=== PATIENT | female | born 1980 | race Caucasian/White ===

== ENCOUNTER 2018-03-05 10:49 | Emergency (ER) | payer BC, OTHER ==
[2018-03-05 10:56] VITALS: BP 140/73
--- NOTE | 2018-03-05 11:13 | Emergency Department Report ---
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 LMP 01/29. NO VAG DC. NOT CONCERNED FOR STD. NO N/V/D. ED Review of Systems ROS: Stated complaint: ABD PAIN/STOMACH PAIN Other details as noted in HPI Comment: All other systems reviewed and negative Constitutional: denies: see HPI Eyes: denies: eye pain ENT: denies: throat pain Respiratory: denies: see HPI Cardiovascular: denies: dyspnea on exertion Endocrine: denies: intolerance to cold Gastrointestinal: as per HPI. denies: abdominal pain, nausea, vomiting, diarrhea, constipation, hematemesis, melena, hematochezia Genitourinary: as per HPI, abnormal menses. denies: urgency, dysuria, frequency, hematuria, discharge Musculoskeletal: denies: back pain Skin: denies: rash Neurological: denies: weakness Psychiatric: denies: depression Hematological/Lymphatic: denies: easy bleeding ED Past Medical Hx - Past Medical History Previous Medical History?: No - Surgical History Hx Cholecystectomy: Yes - Family History Family history: no significant - Social History Smoking Status: Never Smoker Substance Use Type: None - Medications Home Medications: Home Medications Medication Instructions Recorded Confirmed Last Taken Type Sulfamethoxazole/Trimethoprim 1 each PO BID #6 tablet 03/05/18 Unknown Rx [Bactrim DS TAB] Dysuria Exam - Exam General: Vital signs noted. No distress. Alert and acting appropriately. A/O X 4 S1S2 LUNGS CTA ABD SNT NO CVA TENDERNESS Exam: Yes Moist Mucous Membranes, No CVA Tenderness, No Abdominal Tenderness, No Rigidity or Guarding ED Course Vital Signs 03/05/18 10:55 Temperature 99.4 F Pulse Rate 70 Respiratory 20 Rate Blood Pressure 140/73 O2 Sat by Pulse 100 Oximetry ED Medical Decision Making - Medical Decision Making Labs 03/05/18 Unknown Urine Color Red Urine Turbidity Cloudy Urine pH 8.0 H Ur Specific [place] 1.013 Urine Protein 30 mg/dl Urine Glucose (UA) Neg Urine Ketones Neg Urine Blood Lg Urine Nitrite Neg Urine Bilirubin Neg Urine Urobilinogen < 2.0 Ur Leukocyte Esterase Neg Urine WBC (Auto) 30.0 H Urine RBC (Auto) > 182.0 U Epithel Cells (Auto) 3.0 Urine HCG, Qual Negative PREG NEG NOT CONCERNED FOR STD 30 WBC IN URINE- WILL TX FOR UTI PT HAS OBGYN FOR FOLLOW UP - Differential Diagnosis RO PREG Critical care attestation.: If time is entered above; I have spent that time in minutes in the direct care of this critically ill patient, excluding procedure time. ED Disposition Clinical Impression: Dysmenorrhea, UTI (urinary tract infection) Disposition: TO HOME OR SELFCARE Is pt being admited?: No Does the pt Need Aspirin: No Condition: Stable Instructions: Menstruation (ED), Dysmenorrhea (ED) Additional Instructions: NEGATIVE URINE INDICATED URINARY TRACT INFECTION MED ORDERED TODAY UNTIL GONE FOLLOW UP WITH PCP OR OBGYN IF PERSISTS REFERRAL BELOW DIET AND ACTIVITY TOLERATED HYDRATE WELL WITH WATER DAILY Prescriptions: Sulfamethoxazole/Trimethoprim [Bactrim DS TAB] 1 each PO BID #6 tablet Referrals: ANUM JURADO MD [Staff Physician] - 3-5 Days [facility] [Outside] - 3-5 Days Time of Disposition: 11:14
[2018-03-05] MEDS ORDERED: NORCO 5/325 PO ONE (11:14)
[2018-03-05 11:23] LABS: Bilirubin,Urine NEG (Negative); Blood,Urine LG (Negative); Urobilinogen,Urine < 2.0 mg/dL (<2.0)
[2018-03-05 11:24] LABS: Color,Urine Red (Yellow); RBC,Urine > 182.0 /HPF (0.0-6.0)
[2018-03-05 11:26] LABS: HCG Qualitative,Urine Negative (Negative)
[2018-03-05] MEDS ORDERED: BACTRIM DS PO ONE (11:29)
== END 2018-03-05 11:43 | disposition home or self-care (01) ==
LOC: ED 10:49
DX: N39.0 Urinary tract infection, site not specified (principal); N94.6 Dysmenorrhea, unspecified; Z90.49 Acquired absence of other specified parts of digestive tract
CPT/HCPCS: 81001; 81025; 99283

== ENCOUNTER 2019-11-09 10:18 | Observation (INO) | payer OTHER ==
[2019-11-09 12:55] LABS: Basophils % (Auto) 0.2 % (0.0-1.8); Eosinophils % (Auto) 0.4 % (0.0-4.3); Hematocrit 32.5 % (30.3-42.9); Hemoglobin 11.7 gm/dl (10.1-14.3); Lymphocytes # (Auto) 1.2 K/mm3 (1.2-5.4); Lymphocytes % (Auto) 14.7 % (13.4-35.0); Mean Corpuscular HGB Conc 36 % (30-34); Mean Corpuscular Volume 92 fl (79-97); Monocytes # (Auto) 0.3 K/mm3 (0.0-0.8); Monocytes % (Auto) 4.2 % (0.0-7.3); Platelet Count 172 K/mm3 (140-440); Red Blood Count 3.55 M/mm3 (3.65-5.03); Red Cell Distribution Width 13.1 % (13.2-15.2)
[2019-11-09] MEDS: BETAMET ACET/BETAMET NA PH 6 MG/ML INJ 5 ML MDV IM SCH (12:57)
[2019-11-09] MEDS: LACTATED RINGERS 1,000 ML IV SCH ×2 (12:58→20:10)
--- NOTE | 2019-11-09 13:09 | Ultrasound Report ---
ULTRASOUND OBSTETRIC LIMITED ULTRASOUND BIOPHYSICAL PROFILE INDICATION / CLINICAL INFORMATION: Increased vaginal bleeding. COMPARISON: None available. FINDINGS: BREATHING MOVEMENT = 2 GROSS BODY MOVEMENT = 2 TONE = 2 QUALITATIVE AMNIOTIC FLUID VOLUME = 2 TOTAL BIOPHYSICAL SCORE = 8/8 AMNIOTIC FLUID INDEX (cm) = 11.3 PRESENTATION: Transverse. HEART RATE (beats per minute): 152 PLACENTA: COMPLETE PREVIA. NO ABRUPTION. ADDITIONAL FINDINGS: Cervical length 5.8 cm IMPRESSION: 1. Biophysical Score = 8/8 2. Complete placenta previa Signer Name: Fransisco Royal MD Signed: 11/09/2019 1:04 PM Workstation Name: [id number]
--- NOTE | 2019-11-09 17:41 | History and Physical Report ---
History of Present Illness Date of examination: 11/09/19 (Pt seen around 1100) Date of admission: 11/09/19 11:41 History of present illness: This is a 39-year-old -0-2-3 at 33 weeks and 1 day. Patient presents today with complaint of painless vaginal bleeding. It was initially a mild to moderate amount of bleeding. Since she has been here though the bleeding has been very mild and has not increased since. No gushes of blood have been noted. Patient also denies feeling any contractions. Good movement. Except for gestational diabetes, patient denies any other issues during the . She does note a history of hypotension though. Patient had an ultrasound showing a complete placenta previa. It also showed a good cervical length of over 5 cm with no evidence of funneling and the cervix appeared closed on ultrasound. Patient's is not available. Patient goes to [facility] . BPP was 09/12 Past History Past Medical History: other (Gestational diabetes, hypotension) Past Surgical History: no surgical history Social history: no significant social history - Obstetrical History : 6 Hx # Term Pregnancies: 3 Induced : 2 Number of Living Children: 3 Medications and Allergies Allergies Allergy/AdvReac Type Severity Reaction Status Date / Time No Known Allergies Allergy Verified 11/09/19 11:04 Home Medications Medication Instructions Recorded Confirmed Last Taken Type Ondansetron [Zofran Odt] 4 mg PO Q8HR PRN #10 tab.rapdis 03/05/18 Unknown Rx Sulfamethoxazole/Trimethoprim 1 each PO BID #6 tablet 03/05/18 Unknown Rx [Bactrim DS TAB] Active Meds: Active Medications Betamethasone Acet/Betameth SodPhos ([place] Soluspan) 12 mg IM Q24H [facility] Last Admin: 11/09/19 12:57 Dose: 12 mg Documented by: Lactated Ringer's (Lactated Ringers) 1,000 mls @ 125 mls/hr IV DIRECT [facility] Last Admin: 11/09/19 12:58 Dose: 125 mls/hr Documented by: Review of Systems All systems: negative (except HPI) - Vital Signs Vital signs: Vital Signs Pulse Pulse Ox 96 H 99 11/09/19 10:53 11/09/19 10:53 Temp Pulse Resp BP Pulse Ox 86 119/60 98 11/09/19 17:34 11/09/19 17:12 11/09/19 17:34 - Physical Exam Abdomen: Positive: normal appearance, soft. Negative: tenderness Genitourinary (Female): Positive: other (Only scant blood noted on the pad.) - Obstetrical FHR: category 1 Uterine Contraction Pattern: Irregular (Only occasionally and pt is not feeling them.) Results Result Diagrams: 11/09/19 12:15 Abnormal lab results 11/09/19 Range/Units 12:15 RBC 3.55 L (3.65-5.03) M/mm3 MCH 33 H (28-32) pg MCHC 36 H (30-34) % RDW 13.1 L (13.2-15.2) % Seg Neutrophils % 80.5 H (40.0-70.0) % All other labs normal. Assessment and Plan - Patient Problems (1) Placenta previa antepartum in third trimester Current Visit: Yes Status: Acute Plan to address problem: U/S confirms placenta previa. Fortunately patient's vaginal bleeding is mild. Betamethasone No. 1 given earlier today. Would ideally keep the patient in the hospital until she at least goes 24 hours without any bleeding. Patient has IV fluids going. The fetus is stable with 10 out of 10 biophysical profile including a reactive NST. Since patient is a gestational diabetic, will continue to follow her fingersticks as she would at home. Her gestational diabetes is diet-controlled. Her office is closed today but would contact them tomorrow to obtain her records. The case was discussed with the patient. All questions were answered.
[2019-11-10] MEDS: LACTATED RINGERS 1,000 ML IV SCH ×2 (03:51→10:56)
--- NOTE | 2019-11-10 09:23 | Progress Note ---
Assessment and Plan Placenta Previa Plan for [facility] consult completion of steroids if bleeding persistent plan for operative delivery after steroid completion Maternal/ well being reassuring overall Tamika Ramesh MD ADDENDUM: 14:[address] [facility] Pt hemydynamically stable, first episode of VB Pt reliant with good social support SP steroids will monitor until AM and if no VB plan for d/c home and c/section at 37 weeks Tamika Ramesh MD Subjective - Subjective Date of service: 11/10/19 Principal diagnosis: Vagina Bleeding/Placenta Previa Objective - Vital Signs Vital Signs: Vital Signs - 12hr 11/09/19 11/09/19 11/09/19 21:23 21:28 21:33 Pulse Rate 89 91 H 86 Blood Pressure O2 Sat by Pulse 96 96 97 Oximetry 11/09/19 11/09/19 11/09/19 21:38 21:43 21:48 Pulse Rate 83 83 85 Blood Pressure O2 Sat by Pulse 97 96 97 Oximetry 11/09/19 11/09/19 11/09/19 21:53 21:58 22:03 Pulse Rate 94 H 83 89 Blood Pressure O2 Sat by Pulse 97 97 96 Oximetry 11/09/19 11/09/19 11/09/19 22:08 22:13 22:18 Pulse Rate 90 103 H 83 Blood Pressure 100/51 O2 Sat by Pulse 96 97 97 Oximetry 11/09/19 11/09/19 11/09/19 22:23 22:28 22:33 Pulse Rate 84 90 92 H Blood Pressure O2 Sat by Pulse 97 96 96 Oximetry 11/09/19 11/09/19 11/09/19 22:38 22:43 22:48 Pulse Rate 93 H 99 H 97 H Blood Pressure O2 Sat by Pulse 96 95 96 Oximetry 11/09/19 11/09/19 11/09/19 22:53 22:58 23:03 Pulse Rate 89 88 84 Blood Pressure O2 Sat by Pulse 96 97 97 Oximetry 11/09/19 11/09/19 11/09/19 23:08 23:13 23:18 Pulse Rate 90 96 H 86 Blood Pressure 110/56 O2 Sat by Pulse 97 97 96 Oximetry 11/09/19 11/09/19 11/09/19 23:23 23:28 23:33 Pulse Rate 86 88 100 H Blood Pressure O2 Sat by Pulse 96 95 97 Oximetry 11/09/19 11/09/19 11/09/19 23:38 23:43 23:48 Pulse Rate 89 89 92 H Blood Pressure O2 Sat by Pulse 96 95 97 Oximetry 11/09/19 11/10/19 11/10/19 23:53 00:05 00:10 Pulse Rate 82 82 94 H Blood Pressure O2 Sat by Pulse 97 98 98 Oximetry 11/10/19 11/10/19 11/10/19 00:12 00:15 00:20 Pulse Rate 93 H 85 84 Blood Pressure 110/64 O2 Sat by Pulse 98 98 Oximetry 11/10/19 11/10/19 11/10/19 00:25 00:30 00:35 Pulse Rate 85 89 92 H Blood Pressure O2 Sat by Pulse 98 98 98 Oximetry 11/10/19 11/10/19 11/10/19 00:40 00:45 00:50 Pulse Rate 86 89 93 H Blood Pressure O2 Sat by Pulse 97 98 97 Oximetry 11/10/19 11/10/19 11/10/19 00:55 01:00 01:05 Pulse Rate 87 92 H 89 Blood Pressure O2 Sat by Pulse 97 97 96 Oximetry 11/10/19 11/10/19 11/10/19 01:10 01:13 01:15 Pulse Rate 88 85 91 H Blood Pressure 89/44 O2 Sat by Pulse 95 96 Oximetry 11/10/19 11/10/19 11/10/19 01:20 01:25 01:30 Pulse Rate 87 87 89 Blood Pressure O2 Sat by Pulse 95 95 96 Oximetry 11/10/19 11/10/19 11/10/19 01:32 01:35 01:40 Pulse Rate 88 91 H 90 Blood Pressure O2 Sat by Pulse 94 96 95 Oximetry 11/10/19 11/10/19 11/10/19 01:45 01:50 01:55 Pulse Rate 91 H 90 84 Blood Pressure O2 Sat by Pulse 95 97 96 Oximetry 11/10/19 11/10/19 11/10/19 02:00 02:05 02:10 Pulse Rate 88 82 89 Blood Pressure O2 Sat by Pulse 96 97 97 Oximetry 11/10/19 11/10/19 11/10/19 02:12 02:15 02:20 Pulse Rate 84 82 82 Blood Pressure 102/54 O2 Sat by Pulse 98 97 Oximetry 1011/10/19 11/10/19 02:25 02:30 02:35 Pulse Rate 87 82 80 Blood Pressure O2 Sat by Pulse 98 98 98 Oximetry 11/10/19 11/10/19 11/10/19 02:40 02:45 02:50 Pulse Rate 81 87 88 Blood Pressure O2 Sat by Pulse 98 97 96 Oximetry 11/10/19 11/10/19 11/10/19 02:55 03:00 03:05 Pulse Rate 86 84 86 Blood Pressure O2 Sat by Pulse 96 97 96 Oximetry 11/10/19 11/10/19 11/10/19 03:10 03:12 03:15 Pulse Rate 84 82 89 Blood Pressure 97/50 O2 Sat by Pulse 97 97 Oximetry 11/10/19 11/10/19 11/10/19 03:20 03:25 03:30 Pulse Rate 84 84 90 Blood Pressure O2 Sat by Pulse 96 96 96 Oximetry 11/10/19 11/10/19 11/10/19 03:35 03:40 03:45 Pulse Rate 86 84 88 Blood Pressure O2 Sat by Pulse 96 96 96 Oximetry 11/10/19 11/10/19 11/10/19 03:46 03:50 04:00 Pulse Rate 89 104 H 85 Blood Pressure O2 Sat by Pulse 94 97 98 Oximetry 11/10/19 11/10/19 11/10/19 04:05 04:10 04:13 Pulse Rate 80 79 80 Blood Pressure 95/55 O2 Sat by Pulse 98 98 Oximetry 11/10/19 11/10/19 11/10/19 04:15 04:20 04:25 Pulse Rate 80 83 88 Blood Pressure O2 Sat by Pulse 97 97 97 Oximetry 11/10/19 11/10/19 11/10/19 04:30 04:35 04:40 Pulse Rate 91 H 83 81 Blood Pressure O2 Sat by Pulse 96 97 97 Oximetry 11/10/19 11/10/19 11/10/19 04:45 04:50 04:55 Pulse Rate 88 89 86 Blood Pressure O2 Sat by Pulse 95 95 96 Oximetry 11/10/19 11/10/19 11/10/19 05:00 05:05 05:10 Pulse Rate 88 86 87 Blood Pressure O2 Sat by Pulse 96 96 97 Oximetry 11/10/19 11/10/19 11/10/19 05:12 05:15 05:20 Pulse Rate 91 H 84 92 H Blood Pressure 95/51 O2 Sat by Pulse 96 97 Oximetry 11/10/19 11/10/19 11/10/19 05:25 05:30 05:35 Pulse Rate 105 H 95 H 90 Blood Pressure O2 Sat by Pulse 98 98 96 Oximetry 11/10/19 11/10/19 11/10/19 05:40 05:45 05:50 Pulse Rate 96 H 101 H 97 H Blood Pressure O2 Sat by Pulse 95 98 97 Oximetry 11/10/19 11/10/19 11/10/19 05:55 06:00 06:05 Pulse Rate 86 86 86 Blood Pressure O2 Sat by Pulse 97 97 97 Oximetry 11/10/19 11/10/19 11/10/19 06:10 06:12 06:15 Pulse Rate 97 H 90 92 H Blood Pressure 85/45 O2 Sat by Pulse 99 97 Oximetry 11/10/19 11/10/19 11/10/19 06:20 06:25 06:30 Pulse Rate 87 88 94 H Blood Pressure O2 Sat by Pulse 97 97 97 Oximetry 11/10/19 11/10/19 11/10/19 06:35 06:40 06:45 Pulse Rate 93 H 97 H 94 H Blood Pressure O2 Sat by Pulse 97 97 97 Oximetry 11/10/19 11/10/19 11/10/19 06:50 06:55 07:00 Pulse Rate 94 H 89 95 H Blood Pressure O2 Sat by Pulse 97 97 97 Oximetry 11/10/19 11/10/19 11/10/19 07:05 07:10 07:12 Pulse Rate 102 H 97 H 93 H Blood Pressure 103/55 O2 Sat by Pulse 99 98 Oximetry 11/10/19 11/10/19 11/10/19 07:15 07:20 07:25 Pulse Rate 101 H 93 H 90 Blood Pressure O2 Sat by Pulse 98 98 98 Oximetry 11/10/19 11/10/19 11/10/19 07:30 07:35 07:40 Pulse Rate 83 80 92 H Blood Pressure O2 Sat by Pulse 97 98 98 Oximetry 11/10/19 11/10/19 11/10/19 07:45 07:50 07:55 Pulse Rate 89 96 H 95 H Blood Pressure O2 Sat by Pulse 99 99 99 Oximetry 11/10/19 11/10/19 11/10/19 08:00 08:05 08:10 Pulse Rate 89 97 H 101 H Blood Pressure O2 Sat by Pulse 98 97 97 Oximetry 11/10/19 11/10/19 11/10/19 08:15 08:20 08:25 Pulse Rate 99 H 90 101 H Blood Pressure O2 Sat by Pulse 97 97 97 Oximetry 11/10/19 11/10/19 11/10/19 08:30 08:52 08:57 Pulse Rate 112 H 94 H 99 H Blood Pressure O2 Sat by Pulse 97 98 99 Oximetry 11/10/19 11/10/19 11/10/19 09:02 09:07 09:12 Pulse Rate 100 H 101 H 100 H Blood Pressure O2 Sat by Pulse 98 97 97 Oximetry 11/10/19 09:17 Pulse Rate 99 H Blood Pressure O2 Sat by Pulse 97 Oximetry - Labs Labs: Abnormal Labs 11/09/19 11/09/19 12:15 21:02 RBC 3.55 L MCH 33 H MCHC 36 H RDW 13.1 L Seg Neutrophils % 80.5 H POC Glucose 137 H Laboratory Results - last 24 hr 11/09/19 11/09/19 11/09/19 12:15 12:15 14:36 WBC 8.0 RBC 3.55 L Hgb 11.7 Hct 32.5 MCV 92 MCH 33 H MCHC 36 H RDW 13.1 L Plt Count 172 Lymph % (Auto) 14.7 [place] % (Auto) 4.2 Eos % (Auto) 0.4 Baso % (Auto) 0.2 Lymph # (Auto) 1.2 [place] # (Auto) 0.3 Eos # (Auto) 0.0 Baso # (Auto) 0.0 Seg Neutrophils % 80.5 H Seg Neutrophils # 6.4 POC Glucose 83 Blood Type O POSITIVE Antibody Screen Negative 11/09/19 21:02 WBC RBC Hgb Hct MCV MCH MCHC RDW Plt Count Lymph % (Auto) [place] % (Auto) Eos % (Auto) Baso % (Auto) Lymph # (Auto) [place] # (Auto) Eos # (Auto) Baso # (Auto) Seg Neutrophils % Seg Neutrophils # POC Glucose 137 H Blood Type Antibody Screen
[2019-11-10] MEDS: BETAMET ACET/BETAMET NA PH 6 MG/ML INJ 5 ML MDV IM SCH (14:03)
[2019-11-11] MEDS ORDERED: ACETAMINOPHEN 325 MG TAB PO PRN (00:43)
[2019-11-11] MEDS ORDERED: ONDANSETRON 4 MG/2 ML INJ IV PRN (00:44)
[2019-11-11 10:00] VITALS: BP 112/54
== END 2019-11-11 10:15 | disposition home or self-care (01) ==
LOC: TRG 10:18 → APU 10:19 → LD 11:42
PROVIDERS: ADMIT Obstetrics & Gynecology; ATTEND Obstetrics & Gynecology
DX: O44.03 Complete placenta previa NOS or without hemorrhage, third trimester (principal); I95.9 Hypotension, unspecified; Z3A.33 33 weeks gestation of pregnancy; Z79.899 Other long term (current) drug therapy
CPT/HCPCS: 36415; 59025; 76815; 76819; 82962; 85025; 86850; 86900; 86901; 88307; 96360; 96361; 96372; G0378; J0702; J7120

== ENCOUNTER 2019-11-24 12:38 | Inpatient (IN) | payer OTHER ==
[2019-11-24] MEDS ORDERED: LACTATED RINGERS 1,000 ML ONE ×2 (12:52→22:48)
[2019-11-24] MEDS ORDERED: LACTATED RINGERS 1,000 ML IV ONE (12:56)
--- NOTE | 2019-11-24 13:35 | History and Physical Report ---
History of Present Illness Date of examination: 11/24/19 Date of admission: 11/24/2019 Chief complaint: vaginal bleeding History of present illness: 39 yo A3 at a35w2d with known complete placenta previa c/b AMA, hx HSV with hx of admission on 11/11/2019, s/op BMS x 2 presenting with vaginal bleeding from home and tennis ball sized clot passage. Past History Past Medical History: asthma Past Surgical History: cholecystectomy [employer]EL[employer] History: abnormal PAP smear Family/Genetic History: diabetes Social history: no significant social history - Obstetrical History : 7 Para: 3 Hx # Term Pregnancies: 3 Spontaneous Abortions: 3 Number of Living Children: 3 Medications and Allergies Allergies Allergy/AdvReac Type Severity Reaction Status Date / Time No Known Allergies Allergy Verified 11/09/19 11:04 Home Medications Medication Instructions Recorded Confirmed Last Taken Type Ferrous Sulfate [Iron 325 MG] 325 mg PO DAILY 11/09/19 11/09/19 Unknown History Vit-Fe Fumar-FA [ 1 tab PO QDAY 11/09/19 11/09/19 Unknown History Vitamin] Active Meds: Active Medications Lactated Ringer's (Lactated Ringers) 1,000 mls @ 999 mls/hr IV BOLUS ONE Stop: 11/24/19 13:56 Review of Systems All systems: negative (expect HPI) - Vital Signs Vital signs: Vital Signs Pulse Pulse Ox 94 H 100 11/24/19 12:46 11/24/19 12:46 Temp Pulse Resp BP Pulse Ox 85 99 11/24/19 13:16 11/24/19 13:16 - Physical Exam Abdomen: Positive: normal appearance, normal bowel sounds - Obstetrical FHR: category 1 Uterine Contraction Monitor Mode: External Uterine Contraction Pattern: Absent Results All other labs normal. Assessment and Plan - Patient Problems (1) Placenta previa antepartum in third trimester Current Visit: No Status: Acute Plan to address problem: Known placenta previa s/p 2nd bleed. s/p BMS last hospitalization on 11/11/2019. --Consult [facility] for delivery recommendations --Hold BMS as already given steroids wnl the last 2 weeks --Delivery via c/s if indicated
[2019-11-24 15:27] LABS: Basophils % (Auto) 0.2 % (0.0-1.8); Eosinophils % (Auto) 0.5 % (0.0-4.3); Hematocrit 34.8 % (30.3-42.9); Hemoglobin 12.1 gm/dl (10.1-14.3); Lymphocytes # (Auto) 1.2 K/mm3 (1.2-5.4); Lymphocytes % (Auto) 13.4 % (13.4-35.0); Mean Corpuscular HGB Conc 35 % (30-34); Mean Corpuscular Volume 94 fl (79-97); Monocytes # (Auto) 0.5 K/mm3 (0.0-0.8); Monocytes % (Auto) 5.5 % (0.0-7.3); Red Cell Distribution Width 13.7 % (13.2-15.2)
[2019-11-24 15:32] LABS: Platelet Count 174 K/mm3 (140-440)
[2019-11-24 15:36] LABS: INR 0.98 (0.87-1.13)
[2019-11-24 15:37] LABS: Partial Thromboplastin Time 32.3 Sec. (24.2-36.6)
--- NOTE | 2019-11-24 15:52 | Ultrasound Report ---
LIMITED OBSTETRICAL ULTRASOUND WITH BIOPHYSICAL PROFILE HISTORY: Vaginal bleeding. FINDINGS: Limited obstetrical ultrasound was performed. A single viable intrauterine is in the maternal have right transverse position. heart tones are 152 bpm. Amniotic fluid index is 1 3 cm. Cervical length is 4.2 cm. A complete previa is present. Biophysical profile is normal at 8/8. IMPRESSION: 1. Single viable intrauterine in the transverse position. 2. Complete previa. 3. Normal biophysical profile. Signer Name: Kiran Nicholas MD Signed: 11/24/2019 3:47 PM Workstation Name: [id number]
[2019-11-25] MEDS: LACTATED RINGERS 1,000 ML IV SCH (06:51)
--- NOTE | 2019-11-25 12:27 | Progress Note ---
Assessment and Plan - Patient Problems (1) Placenta previa antepartum in third trimester Current Visit: No Status: Acute Plan to address problem: Pt is stable and Betamethasone complete. Per [facility] recommendation, will keep pt as inpatient. IF still stable at 37 weeks, deliver then. Subjective - Subjective Date of service: 11/25/19 (Pt seen around 0930) Interval history: Pt doing well. Only minimal blood noted by pt. Much improved vs yesterday. No abd pain or cramping. Good FM. No other complaints. Objective - Vital Signs Vital Signs: Vital Signs - 12hr 11/25/19 11/25/19 11/25/19 03:40 07:30 10:28 Temperature 98.2 F 98.8 F Pulse Rate 75 Respiratory 16 Rate Blood Pressure 108/55 - Exam Abdomen: Present: soft. Absent: tenderness FHR: auscultation normal, category 1 Uterine Contraction Pattern: Absent - Labs Labs: Abnormal Labs 11/24/19 11/24/19 13:00 13:00 MCH 33 H MCHC 35 H Seg Neutrophils % 80.4 H Fibrinogen 509 H D-Dimer 1897.15 H Laboratory Results - last 24 hr 11/24/19 11/24/19 11/24/19 13:00 13:00 13:00 WBC 9.0 RBC 3.70 Hgb 12.1 Hct 34.8 MCV 94 MCH 33 H MCHC 35 H RDW 13.7 Plt Count 174 Lymph % (Auto) 13.4 [place] % (Auto) 5.5 Eos % (Auto) 0.5 Baso % (Auto) 0.2 Lymph # (Auto) 1.2 [place] # (Auto) 0.5 Eos # (Auto) 0.0 Baso # (Auto) 0.0 Seg Neutrophils % 80.4 H Seg Neutrophils # 7.2 PT 13.2 INR 0.98 APTT 32.3 Fibrinogen 509 H D-Dimer 1897.15 H Blood Type O POSITIVE Antibody Screen Negative KB % Cells 11/24/19 13:00 WBC RBC Hgb Hct MCV MCH MCHC RDW Plt Count Lymph % (Auto) [place] % (Auto) Eos % (Auto) Baso % (Auto) Lymph # (Auto) [place] # (Auto) Eos # (Auto) Baso # (Auto) Seg Neutrophils % Seg Neutrophils # PT INR APTT Fibrinogen D-Dimer Blood Type Antibody Screen KB % Cells Negative
--- NOTE | 2019-11-26 09:47 | Progress Note ---
Assessment and Plan - Patient Problems (1) Placenta previa antepartum in third trimester Current Visit: No Status: Acute Plan to address problem: Known placenta previa s/p 2nd bleed. s/p BMS last hospitalization on 11/11/2019. --For admission until delivery, end date at 37 weeks --Hold BMS as already given steroids wnl the last 2 weeks --Delivery via c/s if indicated Subjective - Subjective Date of service: 11/26/19 Principal diagnosis: vaginal bleeding with known placenta previa Interval history: Patient reports intermittent spotting today AM when using restroom. No significant clots. Fetus moving well. No contractions. Otherwise well. Patient reports: vaginal bleeding (scant spotting, no significant vaginal bleeding) Objective - Vital Signs Vital Signs: Vital Signs - 12hr 11/25/19 11/25/19 11/25/19 21:45 21:50 21:55 Pulse Rate 76 73 78 O2 Sat by Pulse 96 96 96 Oximetry 11/25/19 11/25/19 11/25/19 22:00 22:03 22:05 Pulse Rate 77 76 85 O2 Sat by Pulse 96 94 98 Oximetry 11/25/19 11/25/19 11/25/19 22:10 22:15 22:20 Pulse Rate 76 77 76 O2 Sat by Pulse 96 97 98 Oximetry 11/25/19 11/25/19 11/25/19 22:25 22:30 22:35 Pulse Rate 74 79 78 O2 Sat by Pulse 97 99 98 Oximetry 11/25/19 11/25/19 11/25/19 22:40 22:45 22:50 Pulse Rate 78 75 76 O2 Sat by Pulse 98 97 99 Oximetry 11/25/19 11/25/19 11/25/19 22:55 23:00 23:09 Pulse Rate 76 80 82 O2 Sat by Pulse 99 98 99 Oximetry 11/25/19 11/25/19 11/25/19 23:14 23:19 23:24 Pulse Rate 81 82 78 O2 Sat by Pulse 99 99 99 Oximetry 11/25/19 11/25/19 11/25/19 23:29 23:34 23:39 Pulse Rate 76 77 78 O2 Sat by Pulse 99 99 99 Oximetry 11/25/19 11/25/19 11/25/19 23:44 23:49 23:54 Pulse Rate 78 79 73 O2 Sat by Pulse 99 98 98 Oximetry 11/25/19 11/26/19 11/26/19 23:59 00:04 00:09 Pulse Rate 70 80 67 O2 Sat by Pulse 97 97 96 Oximetry 11/26/19 11/26/19 11/26/19 00:14 00:19 00:24 Pulse Rate 67 67 70 O2 Sat by Pulse 96 95 96 Oximetry 11/26/19 11/26/19 11/26/19 00:29 00:34 00:39 Pulse Rate 67 67 71 O2 Sat by Pulse 96 96 95 Oximetry 11/26/19 11/26/19 11/26/19 00:44 00:49 00:54 Pulse Rate 77 73 75 O2 Sat by Pulse 96 96 96 Oximetry 11/26/19 11/26/19 11/26/19 00:59 01:04 01:09 Pulse Rate 75 71 80 O2 Sat by Pulse 96 96 98 Oximetry 11/26/19 11/26/19 11/26/19 01:14 01:19 01:24 Pulse Rate 69 80 69 O2 Sat by Pulse 98 99 98 Oximetry 11/26/19 11/26/19 11/26/19 01:29 01:34 01:39 Pulse Rate 78 78 76 O2 Sat by Pulse 98 97 97 Oximetry 11/26/19 11/26/19 11/26/19 01:44 01:49 01:54 Pulse Rate 72 71 77 O2 Sat by Pulse 97 99 98 Oximetry 11/26/19 11/26/19 11/26/19 01:59 02:09 02:14 Pulse Rate 79 84 82 O2 Sat by Pulse 98 99 98 Oximetry 11/26/19 11/26/19 11/26/19 02:19 02:24 02:29 Pulse Rate 75 79 92 H O2 Sat by Pulse 98 98 98 Oximetry 11/26/19 11/26/19 11/26/19 02:34 02:39 02:44 Pulse Rate 86 86 71 O2 Sat by Pulse 98 98 97 Oximetry 11/26/19 11/26/19 11/26/19 02:49 02:54 02:59 Pulse Rate 70 73 70 O2 Sat by Pulse 98 97 98 Oximetry 11/26/19 11/26/19 11/26/19 03:04 03:09 03:14 Pulse Rate 72 71 75 O2 Sat by Pulse 97 98 98 Oximetry 11/26/19 11/26/19 11/26/19 03:19 03:24 03:29 Pulse Rate 75 72 71 O2 Sat by Pulse 95 95 95 Oximetry 11/26/19 11/26/19 11/26/19 03:30 03:34 03:39 Pulse Rate 72 79 72 O2 Sat by Pulse 94 96 95 Oximetry 11/26/19 11/26/19 11/26/19 03:41 03:44 03:47 Pulse Rate 76 73 73 O2 Sat by Pulse 94 95 93 Oximetry 11/26/19 11/26/19 11/26/19 03:49 03:54 03:59 Pulse Rate 73 70 72 O2 Sat by Pulse 95 96 97 Oximetry 11/26/19 11/26/19 11/26/19 04:04 04:09 04:14 Pulse Rate 85 89 75 O2 Sat by Pulse 96 99 96 Oximetry 11/26/19 11/26/19 11/26/19 04:19 04:24 04:29 Pulse Rate 77 67 70 O2 Sat by Pulse 96 96 96 Oximetry 11/26/19 11/26/19 11/26/19 04:34 04:39 04:44 Pulse Rate 76 70 72 O2 Sat by Pulse 98 97 97 Oximetry 11/26/19 11/26/19 11/26/19 04:49 04:54 04:59 Pulse Rate 74 69 70 O2 Sat by Pulse 97 96 95 Oximetry 11/26/19 11/26/19 11/26/19 05:04 05:09 05:13 Pulse Rate 77 73 73 O2 Sat by Pulse 96 96 94 Oximetry 11/26/19 11/26/19 11/26/19 05:14 05:19 05:24 Pulse Rate 79 79 78 O2 Sat by Pulse 96 96 96 Oximetry 11/26/19 11/26/19 11/26/19 05:29 05:34 05:39 Pulse Rate 79 73 71 O2 Sat by Pulse 96 97 96 Oximetry 11/26/19 11/26/19 11/26/19 05:44 05:49 05:54 Pulse Rate 71 74 70 O2 Sat by Pulse 96 96 96 Oximetry 11/26/19 11/26/19 11/26/19 05:59 06:04 06:09 Pulse Rate 76 68 70 O2 Sat by Pulse 95 96 96 Oximetry 11/26/19 11/26/19/21/20 06:14 06:19 06:24 Pulse Rate 70 67 73 O2 Sat by Pulse 95 96 95 Oximetry 11/25/20 11/25/20 20 06:29 06:34 06:39 Pulse Rate 70 69 73 O2 Sat by Pulse 96 96 96 Oximetry 11/25/20 11/25/20 11/25/20 06:44 06:49 06:54 Pulse Rate 71 68 75 O2 Sat by Pulse 96 98 96 Oximetry 11/26/1911/25/20 20 06:56 06:59 07:04 Pulse Rate 69 71 72 O2 Sat by Pulse 94 96 97 Oximetry 11/26/1911/25/20 11/26/19 07:09 07:14 07:19 Pulse Rate 69 60 71 O2 Sat by Pulse 97 97 98 Oximetry 11/26/1911/25/11/26/19 07:24 07:29 07:34 Pulse Rate 70 68 68 O2 Sat by Pulse 97 96 96 Oximetry 11/26/19 11/26/19 11/26/19 07:39 07:44 07:49 Pulse Rate 68 62 69 O2 Sat by Pulse 96 97 97 Oximetry 11/25/11/25/11/26/19 07:54 07:59 08:04 Pulse Rate 70 67 66 O2 Sat by Pulse 96 97 98 Oximetry 11/26/1911/25/20 11/26/19 08:09 08:14 08:19 Pulse Rate 64 72 67 O2 Sat by Pulse 98 98 98 Oximetry 11/26/1911/25/11/26/19 08:24 08:29 08:34 Pulse Rate 66 74 71 O2 Sat by Pulse 99 97 97 Oximetry 11/25/11/25/20 11/26/19 08:39 08:44 08:52 Pulse Rate 70 92 H 92 H O2 Sat by Pulse 99 97 89 Oximetry 11/25/11/25/20 11/26/19 08:53 08:58 09:03 Pulse Rate 73 86 84 O2 Sat by Pulse 95 99 100 Oximetry 11/25/11/25/20 11/25/20 09:08 09:09 09:13 Pulse Rate 89 87 73 O2 Sat by Pulse 100 94 99 Oximetry 10/21/20 11/26/19 11/26/19 09:18 09:23 09:28 Pulse Rate 79 74 76 O2 Sat by Pulse 100 99 98 Oximetry 11/26/19 11/26/19 09:33 09:38 Pulse Rate 72 77 O2 Sat by Pulse 99 98 Oximetry - Exam Abdomen: Present: normal appearance, normal bowel sounds FHR: category 1 Uterine Contraction Monitor Mode: External Uterine Contraction Pattern: Irregular - Labs Labs: Abnormal Labs 11/24/19 11/24/19 13:00 13:00 MCH 33 H MCHC 35 H Seg Neutrophils % 80.4 H Fibrinogen 509 H D-Dimer 1897.15 H
[2019-11-27 06:06] LABS: Basophils % (Auto) 0.3 % (0.0-1.8); Eosinophils % (Auto) 0.5 % (0.0-4.3); Hematocrit 32.6 % (30.3-42.9); Hemoglobin 11.3 gm/dl (10.1-14.3); Lymphocytes # (Auto) 1.5 K/mm3 (1.2-5.4); Lymphocytes % (Auto) 19.7 % (13.4-35.0); Mean Corpuscular HGB Conc 35 % (30-34); Mean Corpuscular Volume 94 fl (79-97); Monocytes # (Auto) 0.4 K/mm3 (0.0-0.8); Platelet Count 153 K/mm3 (140-440); Red Blood Count 3.48 M/mm3 (3.65-5.03); Red Cell Distribution Width 13.6 % (13.2-15.2)
[2019-11-27] MEDS: LACTATED RINGERS 1,000 ML IV SCH ×3 (11:15→16:33)
[2019-11-27] MEDS ORDERED: BICITRA ORAL LIQD 30ML PO ONE (11:39)
--- NOTE | 2019-11-27 11:47 | Event Note ---
Date: 11/27/19 Pt passed a large clot of blood this morning. Currently, VB has lightened since but small amount still noted. FHT is still category 1. PT is 35.4 weeks and already Betamethasone complete. Due to her placenta previa and concerns of further heavier bleeding, options d/w pt via marine reporter and pt agrees to proceed with LTCS today. Plan d/w [facility] and they agree with the plan. Patient fully consented for the surgery. Risks, benefits, and alternatives were all discussed with the patient including risk of bleeding, infection, and potential for injury. Patient understands and accepts these risks. Patient agrees to proceed with surgery. All questions were answered. Patient is also for tubal ligation. Patient consented for that as well including the approximately 04/999 chance of failure. Patient understands and accepts this.
[2019-11-27] MEDS ORDERED: FAMOTIDINE 20 MG/2 ML INJ IV NR (12:00)
[2019-11-27] MEDS ORDERED: OXYTOCIN DRIP 30 UNITS/500 ML BAG IV SCH ×2 (12:00→16:00)
[2019-11-27] MEDS ORDERED: METOCLOPRAMIDE 10 MG/2 ML INJ IV NR (12:00)
[2019-11-27] MEDS ORDERED: SODIUM CHLORIDE 0.9% 500 ML 500 ML IV SCH (12:10)
--- NOTE | 2019-11-27 12:28 | Anesthesia Day of Surgery ---
Anesthesia Day of Surgery - Day of Surgery Patient Examined: Yes Patient H&P Reviewed: Yes Patient is NPO: Yes
--- NOTE | 2019-11-27 12:28 | Anesthesia Consultation ---
Anesthesia Consult and Med Hx Date of service: 11/27/19 - Airway Anesthetic Teeth Evaluation: Good ROM Head & Neck: Adequate Mental/Hyoid Distance: Adequate Mallampati Class: Class II Intubation Access Assessment: Probably Good - Pulmonary Exam CTA: Yes - Cardiac Exam Cardiac Exam: RRR - Pre-Operative Health Status ASA Pre-Surgery Classification: ASA3 Proposed Anesthetic Plan: Epidural, Spinal - Pulmonary Hx Asthma: Yes COPD: No Hx Pneumonia: No - Cardiovascular System Hx Hypertension: No - Central Nervous System Hx Seizures: No Hx Psychiatric Problems: No - Endocrine Hx Renal Disease: No Hx End Stage Renal Disease: No Hx Hypothyroidism: No Hx Hyperthyroidism: No - Hematic Hx Anemia: Yes Hx Sickle Cell Disease: No - Other Systems Hx Alcohol Use: No Hx Obesity: Yes - Additional Comments Anesthesia Medical History Comments: Placenta Previa
[2019-11-27] MEDS ORDERED: ONDANSETRON 4 MG/2 ML INJ ONE (12:37)
[2019-11-27] MEDS ORDERED: BUPIVACAINE/PF (0.5%) 5 MG/1 ML 30 ML VIAL INFILTRATI ONE (12:37)
[2019-11-27] MEDS ORDERED: KETOROLAC 30 MG/1 ML INJ ONE (12:37)
[2019-11-27] MEDS ORDERED: SODIUM CHLORIDE 0.9% IRR 1,500 ML BOTTLE IR ONE (14:00)
[2019-11-27] MEDS ORDERED: WATER FOR IRRIG STERILE 1,500 ML BOTTLE IR ONE (14:00)
[2019-11-27] MEDS ORDERED: PHENYLEPHRINE/NS 1,000 MCG/10 ML SYRINGE (OR USE) IV ONE ×2 (14:20→15:03)
[2019-11-27] MEDS ORDERED: ePHEDrine SULFATE 50 MG/1 ML INJ ONE (14:20)
--- NOTE | 2019-11-27 15:49 | Procedure Note ---
OB Delivery Note - Delivery Date of Delivery: 11/27/19 Surgeon: LISSETTE LINARES Estimated blood loss: 1000cc - Section Preop diagnosis: desires sterilization, breech, other (placenta previa with bleeding.) Postop diagnosis: same section procedure: section, primary low transverse (inveted T incision on the uterus), bilateral tubal ligation Disposition: PACU Complications: other (Inverted T incision on the uterus) Narrative: Indication: 39-year-old -0-3-3 at 35 weeks and 5 days with placenta previa and bleeding. Findings: Normal tubes and ovaries. Multifibroid uterus. Clear fluid. No nuchal cord. Fetus was transverse. Procedure: Patient taken to the operating room and prepped and draped in the usual fashion. Pfannenstiel skin incision was made and carried down to the underlying fascia. Fascia was incised and the incision was extended bilaterally. Rectus fascia dissected off the rectus muscle both superiorly and inferiorly. Peritoneum identified tented up and entered. Peritoneal incision extended superiorly and inferiorly with good visualization of the bladder. Bladder blade was placed. Uterine incision was made and the incision was extended bilaterally. The baby was transverse. Because the baby's presentation and the placenta previa, an inverted T-incision was required. Once this was done the amniotic membrane was able to be ruptured and the baby's feet were able to be grasped, the baby was delivered in a double footling breech fashion without difficulty. Baby bulb suctioned after delivery. Cord was clamped and cut and handed off to waiting team. The placenta was delivered spontaneously. The uterus was exteriorized and cleared of all clots and debris. There was a 4 to 5 cm submucosal myoma that was pedunculated in the endometrium that was removed. Uterine incision closed with 0 Vicryl in a running locked fashion followed by a second imbricating layer of 0 Vicryl. Good hemostasis was noted after some additional [id number] stitches. Her urine was clear. Attention was turned to the tubal ligation. Both tubes were ligated using 2- chromic x2 on each side. This was done successfully and without difficulty on both sides with good hemostasis noted afterwards, even after the uterus, tubes and ovaries were back in the abdominal cavity. The segments of tubes on each side were sent to pathology. Uterus tubes and ovaries were returned to the abdominal cavity. Gutters were cleared of all clots and debris and the pelvis was well irrigated. Good hemostasis noted. Interceed placed over the uterine incision and over the lower uterine segment in the midline. Attention was turned to the rectus fascia which was reapproximated with 0 Vicryl in a running fashion. Subcutaneous tissue was irrigated and reapproximated with 2-0 Vicryl in a running fashion. Skin was closed with 4-0 Vicryl in a subcuticular fashion followed by Dermabond. The procedure was concluded at this point and the patient tolerated the procedure well. All instrument and lap counts were correct. - Infant A at 1 minute: 8 at 5 minutes: 9 Infant Gender: Female
[2019-11-27] MEDS ORDERED: LANOLIN/ZINC/DIMETHICONE (LANSINOH) 7 GM TP PRN (15:57)
[2019-11-27] MEDS ORDERED: NALOXONE 0.4 MG/1 ML INJ IV PRN (15:57)
[2019-11-27] MEDS ORDERED: WITCH HAZEL/ GLYCERIN PAD TP PRN (15:57)
[2019-11-27] MEDS ORDERED: ONDANSETRON 4 MG/2 ML INJ IV PRN (15:59)
[2019-11-27] MEDS ORDERED: SENNOSIDES 8.6 MG TAB PO PRN (15:59)
[2019-11-27] MEDS ORDERED: MAGNESIUM HYDROXIDE (MOM) ORAL LIQD UDC PO PRN (15:59)
[2019-11-27] MEDS ORDERED: SIMETHICONE 80 MG CHEW TAB PO PRN (15:59)
--- NOTE | 2019-11-27 16:21 | Post Anesthesia Evaluation ---
- Post Anesthesia Evaluation Patient Participated: Yes Airway Patent: Yes Stable Respiratory Function: Yes Nausea/Vomiting: No Temp > 96.8F: Yes Pain Manageable: Yes Adequeate Hydration: Yes Anesthesia Complications: No Block Receding Appropriately: Yes
--- NOTE | 2019-11-27 16:23 | Progress Note ---
Regional Anesthesia Block - Regional Anesthesia Block Start Time: 16:10 Stop Time: 16:15 Performed By:: QUIN PATRICK Procedure: U/S guided bilateral tap block performed for post-operative pain requested by Dr. Doherty. H&P & labs reviewed. Procedure explained, questions answered, consent obtained. Patient in the supine position with ekg, blood pressure cuff and pulse ox on and working in PACU. Timeout performed immediately before start of procedure. Probe placed in the mid-axillary line and the external oblique, internal oblique, and transverse abdominus muscles identified. Skin was cleansed with 0.5% Chlorahexadine and allowed to dry. A 4" 20 G Sosa echogenic needle was advanced in plane until the tip was in the fascial plane between the internal oblique and the transverse abdominus. After negative aspiration 35 ml/side of [30 ml 0.5% Bupivacaine], [50 mcg dexmedetomidine], [8 mg dexamethasone], and [40 ml sterile saline] was injected in 5 ml increments with negative aspiration in between. Patient tolerated procedure well. Nataliia DAVID
[2019-11-27] MEDS: KETOROLAC 30 MG/1 ML INJ IV PRN (18:39)
[2019-11-27] MEDS: oxyCODONE /ACETAMINOPHEN 5-325MG TAB PO PRN (23:47)
[2019-11-28] MEDS: oxyCODONE /ACETAMINOPHEN 5-325MG TAB PO PRN ×3 (05:37→21:05)
[2019-11-28 07:10] LABS: Hematocrit 24.2 % (30.3-42.9); Hemoglobin 8.4 gm/dl (10.1-14.3)
[2019-11-28] MEDS: KETOROLAC 30 MG/1 ML INJ IV PRN ×2 (09:30→16:16)
--- NOTE | 2019-11-28 11:38 | Progress Note ---
Assessment and Plan - Patient Problems (1) S/P primary low transverse Current Visit: Yes Status: Acute Plan to address problem: Continue routine PP orders Keep dressing clean and dry, remove on POD#2 Anticipate d/c home in 24-48 hrs if stable (2) Status post tubal ligation at time of delivery, current hospitalization Current Visit: Yes Status: Acute (3) Anemia Current Visit: Yes Status: Acute Qualifiers: Anemia type: other cause Other causes of anemia: acute posthemorrhagic Qualified Code(s): D62 - Acute posthemorrhagic anemia Plan to address problem: Symptomatic Infed 100mg IM x 1 dose Repeat H/H in AM Request assistance with ambulation Increase iron rich foods into diet Subjective - Subjective Date of service: 11/28/19 Principal diagnosis: S/P primary C/S with BTL; POD#1 Interval history: See admission H & P; OB operative note and PP progress notes Patient reports: appetite normal, voiding normally, pain well controlled (with medications), flatus, no bowel movement, no ambulating normally (reports that she gets very dizzy when walking to restroom. Advised to call for assisstance prior to ambulation via spanish interpreter.) : in NICU Objective - Vital Signs Latest vital signs: Vital Signs Temp Pulse Resp BP BP Pulse Ox 11/28/19 09:30 20 11/28/19 08:05 97.9 F 70 20 127/64 11/28/19 06:37 18 11/28/19 05:37 18 11/28/19 04:29 97.9 F 70 20 111/55 99 11/28/19 00:47 18 11/27/19 23:47 18 11/27/19 23:29 98.6 F 83 20 112/60 97 11/27/19 17:36 97.9 F 18 97 11/27/19 17:18 103 H 104/48 97 11/27/19 16:45 100 H 15 113/61 11/27/19 16:40 96 H 18 114/63 11/27/19 16:30 91 H 19 120/74 11/27/19 16:20 68 22 135/72 11/27/19 16:15 61 19 135/73 11/27/19 16:10 72 25 H 121/66 11/27/19 16:05 102 H 29 H 110/47 11/27/19 16:00 64 20 129/50 11/27/19 15:56 97.9 F 110 H 20 86/34 11/27/19 13:53 85 99 11/27/19 13:48 83 99 11/27/19 13:45 98.7 F 18 11/27/19 13:43 87 98 11/27/19 13:38 85 99 11/27/19 13:33 87 99 11/27/19 13:28 87 100 11/27/19 13:23 87 99 11/27/19 13:18 92 H 100 11/27/19 13:13 88 100 11/27/19 13:08 81 97 11/27/19 13:03 77 98 11/27/19 12:58 92 H 99 11/27/19 12:53 85 98 11/27/19 12:48 92 H 97 11/27/19 12:43 89 99 11/27/19 12:38 88 99 11/27/19 12:33 91 H 98 11/27/19 12:28 86 99 11/27/19 12:23 89 99 11/27/19 12:18 84 98 11/27/19 12:13 83 99 11/27/19 12:08 87 98 11/27/19 12:03 91 H 98 11/27/19 12:00 98.1 F 18 11/27/19 11:58 86 99 11/27/19 11:52 81 99 11/27/19 11:42 89 99 11/27/19 11:38 90 117/64 11/27/19 11:37 85 98 Intake and Output 11/27/19 11/28/19 11/28/19 23:59 07:59 15:59 Intake Total 818.75 720 120 Output Total 250 2100 900 Balance 568.75 -1380 -780 Intake: IV 818.75 Lactated Ringers 1,000 ml 618.75 @ 125 mls/hr IV DIRECT COSME Rx#:[id number] Oral 240 120 Intake, Free Water 480 Output: Urine 250 2100 900 Indwelling Catheter 1200 Uretheral ([place]) 50 Void 900 900 Other: Total, Intake Amount 240 120 Total, Output Amount 500 900 # Voids Void 1 3 - Exam Breasts: Present: normal Cardiovascular: Present: Regular rate Lungs: Present: Normal air movement Abdomen: Present: soft, tenderness Uterus: Present: firm, fundal height below umbilicus (U-1) Extremities: Present: normal Deep Tendon Reflex Grade: Normal +2 Incision: Present: dressed (no shadow drainage or bleeding noted) - Labs Labs: Abnormal lab results 11/27/19 11/28/19 Range/Units 13:24 07:00 Hgb 8.4 L (10.1-14.3) gm/dl Hct 24.2 L D (30.3-42.9) % Crossmatch See Detail
[2019-11-28] MEDS: IRON DEXTRAN COMPLEX 100 MG/2 ML INJ IM SCH ×2 (16:56→18:18)
[2019-11-29] MEDS: IBUPROFEN 800 MG TAB PO PRN (00:39)
[2019-11-29] MEDS: oxyCODONE /ACETAMINOPHEN 5-325MG TAB PO PRN ×3 (05:39→20:05)
[2019-11-29 06:28] LABS: Hemoglobin 7.6 gm/dl (10.1-14.3)
[2019-11-29] MEDS ORDERED: SODIUM CHLORIDE 0.9% 500 ML 500 ML IV ONE (11:20)
--- NOTE | 2019-11-29 11:27 | Progress Note ---
Assessment and Plan A: /postop day 2 S/P primary LTCS with BTL. Severe anemia, symptomatic. P: Transfuse 2 units PRBCs. Advised patient to get assistance when getting up and down to bathroom and when ambulating. Subjective - Subjective Date of service: 11/29/19 Principal diagnosis: S/P primary C/S with BTL; POD#2 Interval history: Feeling dizzy and like she may pass out. BP is lowish. Reports small amount of lochia. Hgb 7.6; Hct 22.0. Patient agrees to take blood transfusion. Denies chest pain, SOB, or headache. Patient reports: appetite normal, voiding normally, dizzy ambulation, pain well controlled, flatus, no nauseated : doing well Objective - Vital Signs Latest vital signs: Vital Signs Temp Pulse Resp BP BP Pulse Ox 11/29/19 08:15 97.5 F L 77 20 99/46 11/29/19 01:23 97.9 F 89 18 98/41 98 11/28/19 20:56 62 100/51 11/28/19 16:16 20 11/28/19 16:11 98.2 F 83 20 99/38 11/28/19 13:00 98 F 80 20 132/66 11/28/19 12:30 20 Intake and Output 11/28/19 11/29/19 11/29/19 23:59 07:59 15:59 Intake Total 340 240 Output Total 1500 Balance -1160 240 Intake: Oral 340 240 Output: Urine 1500 Void 1500 Other: Total, Intake Amount 100 240 Total, Output Amount 900 # Voids Void 3 1 - Exam Cardiovascular: Present: Regular rate, No murmurs Lungs: Present: Clear to auscultation Abdomen: Present: normal appearance, soft, normal bowel sounds. Absent: distention, tenderness, guarding, rigidity Uterus: Present: normal, firm, fundal height below umbilicus. Absent: bogginess, tenderness Extremities: Absent: tenderness Incision: Present: normal, dry, intact - Labs Labs: Abnormal lab results 11/27/19 11/29/19 Range/Units 13:24 05:48 Hgb 7.6 L (10.1-14.3) gm/dl Hct 22.0 L (30.3-42.9) % Crossmatch See Detail
[2019-11-29] MEDS ORDERED: FERROUS SULFATE 325 MG TAB PO SCH (12:00)
[2019-11-29] MEDS ORDERED: SODIUM CHLORIDE 0.9% 1000 ML 1,000 ML ONE (14:35)
[2019-11-29] MEDS ORDERED: SODIUM CHLORIDE 0.9% 1000 ML 1,000 ML IV SCH (14:45)
[2019-11-30 01:34] LABS: Hematocrit 29.8 % (30.3-42.9); Hemoglobin 10.4 gm/dl (10.1-14.3)
[2019-11-30] MEDS: IBUPROFEN 800 MG TAB PO PRN ×2 (02:00→14:16)
[2019-11-30] MEDS: oxyCODONE /ACETAMINOPHEN 5-325MG TAB PO PRN (06:06)
[2019-11-30] MEDS ORDERED: FERROUS SULFATE 325 MG TAB PO SCH (10:00)
--- NOTE | 2019-11-30 11:48 | Progress Note ---
Assessment and Plan A: /postop day 3 S/P repeat section with BTL. Anemia. History of depression in the past (no symptoms now). P: Case management to see patient to inform her of access to resources. Discussed with patient /postop discharge instructions and warning signs. Advised patient to continue taking her iron supplements and vitamin at home. Advised pt. re: signs of depression. Advised patient re: care of incision and activity restrictions. Advised patient to avoid intercourse, lifting, heavy housework, and driving. Advised patient to follow up at [facility] in 1 week for incision check and also to screen for depression. Patient voiced understanding of all instructions. Subjective - Subjective Date of service: 11/30/19 Principal diagnosis: S/P primary C/S with BTL; POD#3 Interval history: Patient states dizziness has resolved and she feels better after the blood transfusion. Denies headache, chest pain, shortness of breath. Wants to go home later today. Patient reports: appetite normal, voiding normally, pain well controlled, flatus, ambulating normally, no dizzy ambulation, no nauseated [place]: doing well, in NICU Objective - Vital Signs Latest vital signs: Vital Signs Temp Pulse Resp BP BP Pulse Ox 11/30/19 07:20 97.6 F 66 18 118/57 97 11/30/19 06:06 20 11/30/19 02:00 20 11/29/19 20:05 20 11/29/19 18:55 98.0 F 80 20 120/70 97 11/29/19 17:42 98.2 F 88 20 126/71 96 11/29/19 17:41 91 H 94 11/29/19 17:11 97.7 F 96 H 20 122/71 97 11/29/19 16:59 98.2 F 97 H 20 112/70 98 11/29/19 16:45 98.2 F 11/29/19 16:43 99 H 123/67 96 11/29/19 15:37 100 H 18 112/68 97 11/29/19 15:09 98.1 F 95 H 22 120/67 98 11/29/19 14:54 98.2 F 98 H 24 115/67 99 Intake and Output 11/29/19 11/30/19 11/30/19 23:59 07:59 15:59 Intake Total 820 Balance 820 Intake: Oral 320 Blood Product 500 Leukoreduced Rbc Part 2 250 Unit [id number] Leukoreduced Red Blood 250 Cells Unit [id number] Other: Total, Intake Amount 320 # Voids Void 1 - Exam Cardiovascular: Present: Regular rate, No murmurs Lungs: Present: Clear to auscultation Abdomen: Present: normal appearance, soft, normal bowel sounds. Absent: distention, tenderness, guarding, rigidity Uterus: Present: normal, firm, fundal height below umbilicus. Absent: bogginess, tenderness Extremities: Present: normal. Absent: tenderness Incision: Present: normal, dry, intact - Labs Labs: Abnormal lab results 11/27/19 11/30/19 Range/Units 13:24 00:59 Hct 29.8 L D (30.3-42.9) % Crossmatch See Detail
--- NOTE | 2019-11-30 11:53 | Discharge Summary ---
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 with history of depression; no symptoms now but is at risk for depression. Please inform her of resources. Primary care physician: DALIA SOUZA JR, MD Hospitalization Reason for admission: section Delivery: Procedure: section, bilateral tubal ligation Incision: normal, dry, intact Other procedures: tubal ligation complications: transfusion Discharge diagnosis: delivery [place] baby: female Pertinent studies: Labs Hospital course: Stable hospital course Condition at discharge: Good Disposition: DC-01 TO HOME OR SELFCARE - Discharge Diagnoses (1) delivery Status: Acute (2) Anemia Status: Acute Qualifiers: Anemia type: other cause Other causes of anemia: acute posthemorrhagic Qualified Code(s): D62 - Acute posthemorrhagic anemia Plan - Discharge Medications Prescriptions: Ibuprofen [Motrin 800 MG tab] 800 mg PO Q8HR PRN #30 tablet PRN Reason: Pain , Severe (7-10) oxyCODONE /ACETAMINOPHEN [Percocet 5/325] 1 tab PO Q4HR PRN #30 tab PRN Reason: Pain , Severe (7-10) - Provider Discharge Summary Activity: routine, no sex for 6 weeks, no heavy lifting 4 weeks, no strenuous exercise Diet: routine Instructions: routine Additional instructions: Continue taking your vitamin and iron supplement at home. Follow up at [facility] in 1 week. Call your doctor immediately for: * Fever > 100.5 * Heavy vaginal bleeding ( >1 pad per hour) * Severe persistent headache * Shortness of breath * Reddened, hot, painful area to leg or breast * Drainage or odor from incision. * Keep incision clean and dry at all times and follow doctor's instructions regarding bathing/showering - Follow up plan Follow up: LISSETTE LINARES MD [Staff Physician] - 7 Days Forms: [facility] Discharge Summary, Discharge Signature Page
[2019-11-30 16:07] VITALS: BP 114/67
== END 2019-11-30 14:30 | disposition home or self-care (01) | DRG 783 ==
LOC: TRG 12:38 → APU 12:40 → LD 15:35 → TRG 16:31 → LD 16:31 → UNDOADMIN 16:31 → LD 11-25 12:20 → OB 11-27 17:18
PROVIDERS: ADMIT Obstetrics & Gynecology; ATTEND Obstetrics & Gynecology
PROC: 10D00Z1 Extraction of Products of Conception, Low, Open Approach (ICD-10-PCS; principal; 2019-11-27)
PROC: 0UB70ZZ Excision of Bilateral Fallopian Tubes, Open Approach (ICD-10-PCS; 2019-11-27)
PROC: 30233N1 Transfusion of Nonautologous Red Blood Cells into Peripheral Vein, Percutaneous Approach (ICD-10-PCS; 2019-11-27)
DX: O44.03 Complete placenta previa NOS or without hemorrhage, third trimester (principal); O60.14X0 Preterm labor third trimester with preterm delivery third trimester, not applicable or unspecified; D62 Acute posthemorrhagic anemia; Z20.828 Contact with and (suspected) exposure to other viral communicable diseases; J45.909 Unspecified asthma, uncomplicated; Z37.0 Single live birth; Z90.49 Acquired absence of other specified parts of digestive tract; Z3A.35 35 weeks gestation of pregnancy; O99.52 Diseases of the respiratory system complicating childbirth; O90.81 Anemia of the puerperium; O32.8XX0 Maternal care for other malpresentation of fetus, not applicable or unspecified; Z30.2 Encounter for sterilization
CPT/HCPCS: 36415; 76815; 76819; 85014; 85018; 85025; 85379; 85384; 85460; 85610; 85730; 86850; 86900; 86901; 86920; 88302; 88305; G0378; C1765; J1750; J1885; J2370; J2405; J2765; J3490; J7120; P9016; U0003